=== PATIENT | female | born 1955 | race Caucasian/White ===

== ENCOUNTER 2017-01-03 20:06 | Inpatient (IN) | payer MEDICAID ==
--- NOTE | 2017-01-03 20:49 | EDPHY ---
H & P Stated Complaint: dx with uti 2.5 days ago, started on abx, continues to have sx /fever Time Seen by Provider: 01/03/17 20:44 HPI/ROS: CHIEF COMPLAINT: Fever, weakness. HISTORY OF PRESENT ILLNESS: The patient is a 61-year-old female who presents with fever, chills, and weakness. She thought she might have a urinary tract infection which started approximately 2 weeks ago. She had pain when she urinated. She also reported significant right lower quadrant pain and suprapubic pain. They were initially intermittent but have become constant. She also developed RLQ pain that radiates to her right flank. She was diagnosed with a UTI on Saturday and was placed on Macrobid but her symptoms have stayed the same. Patient presents tonight for concerns regarding ongoing symptoms of fevers and chills, increasing weakness, aching all over, nausea, and headache. REVIEW OF SYSTEMS: Aside from elements discussed in the HPI, a comprehensive 10-point review of systems was reviewed and is negative. PAST MEDICAL HISTORY: Bipolar disorder, cholecystectomy. SOCIAL HISTORY: Smoker. VITAL SIGNS: Reviewed by me GENERAL: Well-developed, well-nourished, resting comfortably in no respiratory distress. HEENT: Atraumatic. Eyes: No icterus, no injection. Mouth: Slightly dry mucous membranes. No erythema or lesions. Neck: supple with no adenopathy. LUNGS: Clear to auscultation bilaterally, no wheezes, rhonchi or rales. CARDIAC: Regular rate and rhythm, no rubs, murmurs or gallops. ABDOMEN: Soft, nondistended, bowel sounds normal. Right lower quadrant tenderness, mild left lower quadrant tenderness, moderate suprapubic tenderness. No guarding, no rebound. BACK: Right CVA tenderness. EXTREMITIES: No trauma. No edema. Range of motion is normal throughout. NEURO: Alert and oriented, grossly nonfocal. SKIN: Warm and dry, no rash. PSYCHIATRIC: Normal mentation, no agitation. Portions of this note were transcribed by a medical office asst. I personally performed a history, physical exam, medical decision making, and confirmed accuracy of information the transcribed note. Source: Patient Exam Limitations: No limitations - Medical/Surgical History Hx Asthma: No Hx Chronic Respiratory Disease: No Hx Diabetes: No Hx Cardiac Disease: No Hx Renal Disease: No Hx Cirrhosis: No Hx Alcoholism: No Hx HIV/AIDS: No Hx Splenectomy or Spleen Trauma: No Other PMH: bipolar - Social History Smoking Status: Current every day smoker Constitutional: Initial Vital Signs Temperature (C) 38.3 C 01/03/17 20:18 Heart Rate 104 H 01/03/17 20:18 Respiratory Rate 18 01/03/17 20:18 Blood Pressure 129/81 H 01/03/17 20:18 O2 Sat (%) 96 01/03/17 20:18 O2 Delivery Mode Room Air Allergies/Adverse Reactions: No Known Allergies Allergy (Unverified 01/03/17 20:21) Home Medications: Medication Instructions Recorded Divalproex ER [Depakote ER 500 MG 500 mg PO BID 01/03/17 (*)] QUEtiapine FUMARATE [Seroquel 300 mg PO HS 01/03/17 300mg (*)] Acetaminophen [Tylenol 325mg (*)] 650 mg PO Q4HRS PRN #0 tab 01/04/17 levOFLOXACIN [levAQUIN (*)] 750 mg PO DAILY #5 tab 01/04/17 Medical Decision Making - Diagnostics Imaging Results: CT scan abdomen pelvis Impression: 1. There is a 4 mm noncalcified pulmonary nodule in the medial right lower lobe. Please see the below algorithm for follow-up. 2. Inflammation of the right renal pelvis and right ureter with probable lower pole pyelonephritis of the right kidney and urinary bladder cystitis. 3. Normal CT appearance of the appendix. 4. Status post cholecystectomy. Results and recommendations were discussed with Matilde Conklin MD at 22:52, on 01/03/2017. Dictated By: Kristian Parekh MD Imaging: Discussed imaging studies w/ shoe repairman Radiologist ED Course/Re-evaluation: 61-year-old female presents with ongoing fever, weakness, and lower abdominal pain. She was diagnosed with a UTI on Saturday but the symptoms have not subsided. She has been taking Nitrofurantoin for the infection, however this will not cover pyelonephritis if the infection has moved to the kidney. I also feel that appendicitis is a possibility. An IV was established and labs ordered. Abdomen/pelvis CT ordered. 1L IV saline administered along with 50mcg IV Fentanyl. Patient's labs demonstrate a white count of 10,000. Normal lactic acid, normal INR, normal platelets, normal bilirubin. No evidence of end-organ dysfunction. CT scan does demonstrate pyelonephritis with significant inflammatory changes more on the right kidney on the right as well as the right ureter. Patient received 1 g ceftriaxone. She will be admitted to the hospital for ongoing care. Severe Sepsis/Septic Shock Care Note The patient presents to the ED with urinary tract infection/pyelonephritis identified as an acute infection. The patient did not have evidence of end- organ dysfunction and did not met criteria for severe sepsis. Patient's course discussed with Dr. Armas. Patient will require follow-up for pulmonary nodule as outlined on the radiology report. Differential Diagnosis: Differential diagnosis for fever in adults was considered including but not limited to pneumonia, urinary tract infection, pyelonephritis, appendicitis, kidney stone with infection, viral syndrome, and influenza. Consult/Admit Bed Type: Dr Armas, [facility] surg - Data Points Laboratory Results: Laboratory Results 01/03/17 21:17 01/03/17 21:17 Medications Given: Discontinued Medications Acetaminophen (Tylenol) 1,000 mg PO EDNOW ONE Stop: 01/03/17 23:12 Last Admin: 01/03/17 23:33 Dose: 1,000 mg Acetaminophen (Tylenol) 650 mg PO Q4HRS PRN PRN Reason: Pain, Mild/Fever, Can Take PO Stop: 07/02/17 23:47 Last Admin: 01/04/17 09:12 Dose: 650 mg Enoxaparin Sodium (Lovenox) 40 mg SC DAILY DILLON Stop: 07/03/17 08:59 Last Admin: 01/04/17 09:12 Dose: 40 mg Fentanyl (Sublimaze) 50 mcg IVP EDNOW ONE Stop: 01/03/17 20:56 Last Admin: 01/03/17 21:21 Dose: 50 mcg Sodium Chloride (Ns) 1,000 mls @ 0 mls/hr IV ONCE ONE; Wide Open PRN Reason: Protocol Stop: 01/03/17 20:56 Last Admin: 01/03/17 21:33 Dose: 1,000 mls Ceftriaxone Sodium/Dextrose (Rocephin 1 Gm (Premix)) 50 mls @ 100 mls/hr IV EDNOW ONE PRN Reason: Protocol Stop: 01/03/17 23:31 Last Admin: 01/03/17 23:35 Dose: 50 mls Sodium Chloride (Ns) 1,000 mls @ 125 mls/hr IV CONT DILLON Stop: 07/02/17 23:44 Last Admin: 01/04/17 09:42 Dose: 1,000 mls Ketorolac Tromethamine (Toradol) 15 mg IVP ONCE ONE Stop: 01/03/17 23:12 Last Admin: 01/03/17 23:32 Dose: 15 mg Levofloxacin (Levaquin) 750 mg PO ONCE ONE PRN Reason: Protocol Stop: 01/04/17 12:43 Last Admin: 01/04/17 14:21 Dose: 750 mg Ondansetron HCl (Zofran) 4 mg IVP EDNOW ONE Stop: 01/03/17 22:28 Last Admin: 01/03/17 22:27 Dose: 4 mg Oxycodone HCl (Oxycodone Ir) 5 - 10 mg PO Q3HRS PRN PRN Reason: Pain, Severe Able to Take PO Stop: 01/13/17 23:47 Last Admin: 01/04/17 01:25 Dose: 10 mg Departure - Departure Disposition: [facility] Acute Clinical Impression: Acute pyelonephritis Condition: Good Report Scribed for: Matilde Conklin Report Scribed by: Rene Aguilar Date of Report: 01/03/17 Time of Report: 20:52
[2017-01-03] MEDS ORDERED: fentaNYL 100 MCG/2 ML INJ IVP ONE (20:55)
[2017-01-03] MEDS ORDERED: NS 1,000 ML IV ONE (20:55)
[2017-01-03] MEDS ORDERED: IOPAMIDOL (ISOVUE-300) 100 ML BTL ONE (21:23)
[2017-01-03] MEDS ORDERED: ONDANSETRON 4 MG/2 ML VIAL ONE (21:26)
[2017-01-03 21:28] LABS: % IMMATURE GRANULYOCYTES 0.6 % (0.0-1.1); ABSOLUTE IMMATURE GRANULOCYTES 0.06 10^3/uL (0.00-0.10); ADD DIFF? NO; ADD MORPH? NO; ADD SCAN? NO; ATYPICAL LYMPHOCYTE FLAG 0 (0-99); FRAGMENT RBC FLAG 0 (0-99); HEMATOCRIT 39.2 % (38.0-47.0); HEMOGLOBIN 13.6 g/dL (12.6-16.3); LEFT SHIFT FLG 10 (0-99); LIPEMIA HEMOLYSIS FLAG 90 (0-99); MEAN CELL HEMOGLOBIN 33.7 pg (27.9-34.1); MEAN CELL HEMOGLOBIN CONCENTR. 34.7 g/dL (32.4-36.7); MEAN PLATELET VOLUME 10.4 fL (8.7-11.7); PLATELET CLUMPS FLAG 10 (0-99); PLATELET COUNT 226 10^3/uL (150-400); RED BLOOD CELL COUNT 4.04 10^6/uL (4.18-5.33); RED CELL DISTRIBUTION WIDTH 13.1 % (11.5-15.2)
[2017-01-03 21:37] LABS: INR 1.02 (0.83-1.16); PROTIME(PATIENT) 13.3 SEC (12.0-15.0)
[2017-01-03 21:38] LABS: APTT 31.5 SEC (23.0-38.0)
[2017-01-03 21:43] LABS: ANION GAP 11 mEq/L (8-16); BILIRUBIN,TOTAL 0.5 mg/dL (0.1-1.4); CALCIUM 9.1 mg/dL (8.5-10.4); CARBON DIOXIDE 22 mEq/l (22-31); CHLORIDE 98 mEq/L (97-110); CREATININE 0.8 mg/dL (0.6-1.0); GLOMERULAR FILTRATION RATE > 60; GLUCOSE 93 mg/dL (70-100); POTASSIUM 4.4 mEq/L (3.5-5.2); SODIUM 131 mEq/L (134-144)
[2017-01-03 22:08] LABS: COLOR YELLOW; LEUKOCYTE ESTERASE,URINE NEGATIVE (NEGATIVE); NITRITE,URINE NEGATIVE (NEGATIVE)
[2017-01-03 22:15] LABS: BACTERIA TRACE /hpf (NONE SEEN); RBC,URINE 50-182 /hpf (0-3)
[2017-01-03] MEDS ORDERED: ONDANSETRON 4 MG/2 ML VIAL IVP ONE (22:27)
[2017-01-03] MEDS ORDERED: ACETAMINOPHEN 500 MG TAB PO ONE (23:11)
[2017-01-03] MEDS ORDERED: KETOROLAC 15 MG/1 ML SDV IVP ONE (23:11)
[2017-01-03] MEDS ORDERED: HYDROmorphONE/DILAUDID 1 MG/ML SYR IVP PRN (23:48)
[2017-01-03] MEDS ORDERED: TEMAZEPAM 15 MG CAP PO PRN (23:48)
[2017-01-03] MEDS ORDERED: oxyCODONE IR 5 MG TAB PO PRN (23:48)
[2017-01-03] MEDS ORDERED: ONDANSETRON DISINTEGRATING 4 MG TAB PO PRN (23:48)
[2017-01-03] MEDS ORDERED: ONDANSETRON 4 MG/2 ML VIAL IVP PRN (23:48)
[2017-01-03] MEDS ORDERED: ACETAMINOPHEN 325 MG TAB PO PRN (23:48)
[2017-01-04] MEDS: NS 1,000 ML IV SCH ×2 (01:18→09:42)
--- NOTE | 2017-01-04 02:28 | GHP ---
[f rep st] HISTORY AND PHYSICAL DATE OF ADMISSION: 01/03/2017 CHIEF COMPLAINT: Kidney infection. HISTORY OF PRESENT ILLNESS: This is a 61-year-old female with a history of bipolar who presents with about 2 weeks of symptoms including pain with urination, frequency, fevers, lower abdominal and right-sided flank pain. She has also felt dizzy, much weaker. Her sister corroborates this, who was present. She went to see Dr. Ball 2 days ago, who told her that she had a urinary tract infection and started her on Macrobid. Apparently, at some point , she was told that the culture grew out E coli, though I do not have any confirmation of this. Since starting antibiotics, she continued to feel worse, called [facility] who recommended that she present to Urgent Care. She thus presents to the ED. PAST MEDICAL/SURGICAL HISTORY: 1. Bipolar. 2. Cholecystectomy. MEDICATIONS: Please see medication reconciliation. ALLERGIES: No known drug allergies. SOCIAL HISTORY: She is a daily smoker. She occasionally drinks alcohol. FAMILY HISTORY: brother had pancreatic cancer. REVIEW OF SYSTEMS: A 10-point review of systems is conducted and is negative except per HPI. PHYSICAL EXAMINATION: VITAL SIGNS: Blood pressure 129/81, her pulse is 112 while I am in the room, respiration rate 18, saturating 96% on room air. Temperature is 38.3. GENERAL: The patient is a very pleasant female who appears somewhat lethargic, lying with her eyes closed but answers all questions appropriately. HEENT: Normocephalic, atraumatic. CARDIOVASCULAR: Tachycardic. There are no murmurs, rubs, or gallops. PULMONARY: Lungs clear to auscultation bilaterally. ABDOMEN: Soft; however, she is tender to palpation in the suprapubic as well as the right lower quadrant and the right flank. SKIN: No rash. : No [place]. NEUROLOGIC: Shows her to be alert and oriented x3. She is moving all extremities. PSYCHIATRIC: Shows normal mood and affect. LABORATORY DATA: White count is 10.3 with 78% neutrophils. INR is 1.0. Lactate is 1.4. Sodium is 131, creatinine 0.8. Urinalysis shows 3+ blood, 5- 10 whites, 50-180 red blood cells. Valproic acid level is 51.3. DATA: 1. I discussed this with Dr. Conklin in the ED. Will admit to med/surg. 2. Abdominal CT scan shows a pulmonary nodule, right renal pelvis inflammation , suspected lower pole pyelonephritis, and urinary bladder cystitis. IMPRESSION AND PLAN: A 61-year-old female with pyelonephritis causing sepsis. 1. Sepsis: No evidence of end-organ damage or septic shock. This is due to pyelonephritis. Will rehydrate her and follow her very closely. 2. Pyelonephritis: Failed outpatient Macrobid. Was told she had E coli in her urine. We will need to track down this culture from [facility]. For now, will treat her with Rocephin. 3. Pulmonary nodule: Per Fleischner criteria, she needs a CT scan at 12 months. 4. Bipolar: Well controlled. Continue her home medications. 5. Venous thromboembolism risk: She is moderate. I will give her Lovenox. 6. Code status is full. Her son is her MD CARROLL, per her verbal report. /[id number]/MODL MTDD
[2017-01-04 04:45] LABS: % IMMATURE GRANULYOCYTES 0.6 % (0.0-1.1); ABSOLUTE IMMATURE GRANULOCYTES 0.05 10^3/uL (0.00-0.10); ADD DIFF? NO; ADD MORPH? NO; ADD SCAN? NO; ATYPICAL LYMPHOCYTE FLAG 0 (0-99); FRAGMENT RBC FLAG 0 (0-99); HEMATOCRIT 34.6 % (38.0-47.0); HEMOGLOBIN 11.6 g/dL (12.6-16.3); LEFT SHIFT FLG 20 (0-99); LIPEMIA HEMOLYSIS FLAG 80 (0-99); MEAN CELL HEMOGLOBIN CONCENTR. 33.5 g/dL (32.4-36.7); MEAN CELL VOLUME 98.6 fL (81.5-99.8); MEAN PLATELET VOLUME 10.3 fL (8.7-11.7); PLATELET CLUMPS FLAG 0 (0-99); PLATELET COUNT 203 10^3/uL (150-400); RED BLOOD CELL COUNT 3.51 10^6/uL (4.18-5.33); RED CELL DISTRIBUTION WIDTH 13.1 % (11.5-15.2)
[2017-01-04 05:04] LABS: ALANINE AMINOTRANSFERASE 52 IU/L (9-52); ALBUMIN 2.7 g/dL (3.5-5.0); ALKALINE PHOSPHATASE 107 IU/L (38-126); ANION GAP 9 mEq/L (8-16); ASPARTATE AMINOTRANSFERASE 29 IU/L (14-46); BILIRUBIN,TOTAL 0.4 mg/dL (0.1-1.4); CALCIUM 8.4 mg/dL (8.5-10.4); CARBON DIOXIDE 20 mEq/l (22-31); CHLORIDE 104 mEq/L (97-110); GLOMERULAR FILTRATION RATE 57; GLUCOSE 95 mg/dL (70-100); SODIUM 133 mEq/L (134-144)
[2017-01-04] MEDS ORDERED: ENOXAPARIN 40 MG/0.4 ML SYR SC SCH (09:00)
[2017-01-04 12:15] VITALS: BP 105/66; PULSE 64; RESP 14; TEMP 97.5; O2SAT 65
[2017-01-04] MEDS ORDERED: DIVALPROEX ER 500 MG TAB PO SCH (21:00)
[2017-01-04] MEDS ORDERED: QUEtiapine FUMARATE 300 MG TAB PO SCH (21:00)
--- NOTE | 2017-01-05 00:25 | GDS ---
[f rep st] DISCHARGE SUMMARY DISCHARGE DIAGNOSES: 1. Pyelonephritis. 2. Pulmonary nodule. 3. History of bipolar disorder. STUDIES AND PROCEDURES DONE: CT of the abdomen noting pulmonary nodule, as well as inflammation in the right ureter, and pyelonephritis of the right kidney. PHYSICAL EXAMINATION: GENERAL: The patient is alert. VITAL SIGNS: Afebrile at 36.4, pulse is 64, respiratory rate is 14, blood pressure is 105/66. She is saturating greater than 90% on room air. I have seen and evaluated the patient on the day of discharge. HOSPITAL COURSE: The patient is a 61-year-old female who presented to the emergency room with compl aints of urinary tract infection. She was evaluated and diagnosed with: 1. Pyelonephritis. During this hospitalization, she was treated with Rocephin. She has responded well. Her symptoms are improving. I have obtained the urine culture from [facility] that demo nstrates a resistant E coli. It does indicate that it is sensitive to Levaquin, as well as ciproflo xacin, however, not Macrobid, which she was previously prescribed. I have initiated Levaquin prior to disposition and provided her a prescription for continued outpatient antibiotic therapy. She reynold l follow up at [facility] for further treatment. 2. Sepsis. The patient was tachycardic at the time of admission. She responded well to hydration, and her vital signs have stabilized. 3. Pulmonary nodule. This was noted on CT scan. It was recommended that she have a followup CT sc an in 12 months. 4. History of bipolar disorder. This is well controlled, and her medications have been continued. DISPOSITION: The patient will be discharged home independently. Pending studies include blood cult ures, as well as a repeat urine culture. Followup will be at [facility] next week. DISCHARGE MEDICATIONS: Please refer to EMR form. I have not adjusted the patient's previously pres cribed home medications. I have provided her a prescription for Levaquin 750 mg daily, #5. I have spent greater than 35 minutes in the care, coordination, and management of the patient's disp osition. /[id number]/MODL
== END 2017-01-04 14:56 | DRG 690 ==
LOC: OBSVTOIN 23:03 → F3N 01-04 00:51
PROVIDERS: ADMIT Student in an Organized Health Care Education/Training Program; ATTEND Student in an Organized Health Care Education/Training Program
DX: N10 Acute pyelonephritis (principal); B96.20 Unspecified Escherichia coli [E. coli] as the cause of diseases classified elsewhere; Z16.29 Resistance to other single specified antibiotic; R91.1 Solitary pulmonary nodule; F31.9 Bipolar disorder, unspecified; F17.210 Nicotine dependence, cigarettes, uncomplicated
CPT/HCPCS: 96374; J0696; J1650; J1885; J2405; J3010; Q9967